=== PATIENT | female | born 1985 ===

== ENCOUNTER 2019-10-30 06:00 | Outpatient (CLI) | payer OTHER ==
[2019-10-30] MEDS ORDERED: PAXIL CR25 MG PO (10:52)
== END 2019-10-30 06:05 | disposition home or self-care (01) ==
LOC: LAB 06:00 → CIR.AMB 11-06 09:54 → EDSTATUS 11-06 11:36 → CIR.AMB 11-06 14:55
DX: Z01.812 Encounter for preprocedural laboratory examination (principal)